=== PATIENT | female | born 1995 | race African-American/Black ===

== ENCOUNTER 2022-06-01 23:37 | Emergency (ER) | payer BC ==
[~2022-06-01] VITALS: Ht 170.2 cm; Wt 122.5 kg
--- NOTE | 2022-06-02 00:05 | NUR ---
PT ON 3 DAYS MENSTRUAL PERIOD. URINE SPECIMEN IS WITH BLOOD WHEN COLLECTED.
--- NOTE | 2022-06-02 00:06 | NUR ---
BIBS C/O ABD PAIN RLQ -N/V X 3DAYS. PATIENT IS AAOX4. ABLE TO MAKE NEEDS KNOWN. PAIN SCALE OF 6/10. PLACED COMFORTABLY IN BED. VITALS CHECKED.
--- NOTE | 2022-06-02 00:14 | NUR ---
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
--- NOTE | 2022-06-02 00:24 | NUR ---
DISCLAIMER SIGNED FOR NOT BEING BY PATIENT. Astrid MADE AWARE.
[2022-06-02 00:43] LABS: EOSINOPHILS % (AUTO) 2.7 % (0.0-6.0); HEMATOCRIT 32 % (33-45); HEMOGLOBIN 10.1 g/dL (11.5-14.8); LYMPHOCYTES % (AUTO) 24.5 % (20.0-44.0); MEAN CORPUSCULAR HGB CONC 31 g/dl (31.0-36.0); MEAN CORPUSCULAR VOLUME 77 fL (82-100); MONOCYTES # (AUTO) 0.7 K/uL (0.1-1.30); MONOCYTES % (AUTO) 8.4 % (2.0-12.0); NEUTROPHILS # (AUTO) 5.2 K/uL (1.8-8.9); NEUTROPHILS % (AUTO) 64.4 % (43.0-81.0); PLATELET COUNT (AUTO) 358 K/uL (150-450); RED BLOOD CELL COUNT(AUTO) 4.22 MIL/uL (4.0-5.2)
[2022-06-02 00:47] LABS: BILIRUBIN,URINE NEGATIVE (NEGATIVE); COLOR,URINE RED (YELLOW); LEUKOCYTE ESTERASE ,URINE TRACE (NEGATIVE); NITRITE, URINE NEGATIVE (NEGATIVE); PROTEIN,URINE 1+ mg/dl (NEGATIVE); UGLUCOSE NEGATIVE (NEGATIVE); UROBILINOGEN,URINE 0.2 EU/dL (0.2)
[2022-06-02 00:49] LABS: CALCIUM, SERUM 8.7 mg/dL (8.5-10.1); POTASSIUM 3.7 mmol/L (3.5-5.1)
[2022-06-02 00:49] LABS: BACTERIA,URINE None seen /HPF (None Seen); RBC,URINE TOO NUMEROUS TO COUN /HPF (0-2); SQUAMOUS EPITHELIAL CELL,UR Few /HPF (None Seen); WBC,URINE 0-2 /HPF (0-3)
[2022-06-02] MEDS ORDERED: KETO10TA2 PO (02:08)
--- NOTE | 2022-06-02 02:15 | NUR ---
Patient discharged to home in stable condition. Written and verbal after care instructions given. Patient verbalizes understanding of instruction.
[2022-06-02 03:06] VITALS: BP 168/80
== END 2022-06-02 03:06 | disposition home or self-care (01) ==
LOC: ER 23:41
DX: I88.0 Nonspecific mesenteric lymphadenitis (principal); R10.31 Right lower quadrant pain; Z88.0 Allergy status to penicillin
CPT/HCPCS: 36415; 80048-TC; 81001; 84703-TC; 85025-TC

== ENCOUNTER 2023-11-07 03:10 | Emergency (ER) | payer BC, MEDICAID ==
[~2023-11-07] VITALS: Ht 170.2 cm; Wt 113.4 kg
[~2023-11-07 03:10] MED LIST: KETO10TA2 PO
[2023-11-07] MEDS ORDERED: IBUPROFEN 600 MG TABLET ONE (04:55)
[2023-11-07] MEDS ORDERED: CYCLOBENZAPRINE 10 MG TABLET ONE (04:55)
[2023-11-07] MEDS ORDERED: CYCL5TAB PO (04:57)
[2023-11-07] MEDS: IBUPROFEN 600 MG TABLET PO ONE (04:58)
[2023-11-07] MEDS: CYCLOBENZAPRINE 10 MG TABLET PO ONE (04:58)
[2023-11-07 05:19] VITALS: BP 148/91; O2SAT 99
== END 2023-11-07 05:20 | disposition home or self-care (01) ==
LOC: ER 03:20
DX: M25.512 Pain in left shoulder (principal); M54.6 Pain in thoracic spine; Z88.0 Allergy status to penicillin